=== PATIENT | female | born 1995 | race Caucasian/White ===

== ENCOUNTER 2023-09-05 14:30 | Emergency (ER) | payer OTHER ==
--- NOTE | 2023-09-05 15:38 | ED Physician Documentation ---
History of Present Illness - Stated complaint Stated Complaint: HBP,TIGHT CHEST - Chief complaint Chief Complaint: Cardiac - History obtained from History obtained from: Patient - Additonal information Additional information: The patient comes to the emergency department chief complaint of elevated blood pressure. She states she is on Adderall for ADHD and felt like she needed to increase her dose. Her doctor had given her permission to do this and so she did about 5 days ago. She states that since then, she noticed that her blood pressure was running higher than usual, around 130s over 90s. She states that today, she found that her blood pressure was in the 140s over about 100 and then the systolic continue to rise to the 160s. The patient decided to come here. She did take a rapid acting propranolol 10 mg tab, which she has at home, and uses when she has elevated blood pressure. The patient has a history of hypertension and at baseline, takes propranolol 60 mg and telmisartan. She is uncertain of the telmisartan dose. She has not had any recent dose changes on these. She denies any chest pain, shortness of breath, or strokelike symptoms. No other complaints at this time. PD PAST MEDICAL HISTORY - Past Medical History Past Medical History: Yes Cardiovascular: Hypertension Psych: Depression, Anxiety, ADD/ADHD - Past Surgical History Past Surgical History: No - Present Medications Home Medications: Ambulatory Orders Medication Instructions Recorded Confirmed Dextroamphetamine/Amphetamine 30 mg PO DAILY 09/05/23 09/05/23 [Dextroamp-Amphetamine 5 mg Tab] Eluryng 09/05/23 Guanfacine HCl [Intuniv] 3 mg PO DAILY 09/05/23 09/05/23 Potassium Chloride [K-Dur] 20 meq PO BIDWM #6 tablet 09/05/23 Propranolol ER [Inderal LA] 60 mg PO DAILY 09/05/23 09/05/23 Propranolol [Inderal] 10 mg PO DAILY PRN 09/05/23 09/05/23 Telmisartan/Hydrochlorothiazid 1 tab ORAL DAILY 09/05/23 09/05/23 [Micardis Hct 40-12.5 mg Tablet] - Allergies Allergies/Adverse Reactions: Allergies Allergy/AdvReac Type Severity Reaction Status Date / Time No Known Drug Allergies Allergy Verified 09/05/23 14:45 - Social History Does the pt smoke?: No Smoking Status: Never smoker Does the pt drink ETOH?: Yes Substance Use and Type: Marijuana - Immunizations Immunizations: TDAP >10years/unknown PD ED PE NORMAL - Vitals Vital signs reviewed: Yes - General General: Alert and oriented X 3, No acute distress, Well developed/nourished - HEENT HEENT: Atraumatic, PERRL, EOMI, Moist mucous membranes - Neck Neck: Supple, no meningeal sign - Cardiac Cardiac: RRR, No murmur - Respiratory Respiratory: No respiratory distress, Clear bilaterally - Abdomen Abdomen: Soft, Non tender, Non distended - Derm Derm: Normal color, Warm and dry, No rash - Extremities Extremities: No deformity, No edema - Neuro Neuro: Alert and oriented X 3, Other (Grossly intact.) - Psych Psych: Normal mood, Normal affect Results - Vitals Vitals: Vital Signs - 24 hr 09/05/23 17:00 Temperature 36.5 C Heart Rate 73 Respiratory 15 Rate Blood Pressure 138/99 H O2 Saturation 99 Oxygen O2 Source Room air - EKG (time done) 1456 EKG releavant findings:: EKG personally interpreted by author of this note. Relevant findings are: Rate: Rate (enter#) (72) Rhythm: NSR [place]: Normal Intervals: Normal [place] QRS: Normal Compare to prior EKG: Old EKG unavailable Computer interpretation: Agree with computer - Labs Labs: Laboratory Tests 09/05/23 09/05/23 15:46 15:46 WBC 17.1 H RBC 5.10 Hgb 15.3 Hct 44.5 MCV 87.3 MCH 30.0 MCHC 34.4 RDW 11.2 L Plt Count 438 MPV 9.5 Neut # (Auto) 11.2 H Lymph # (Auto) 4.8 H [place] # (Auto) 0.8 Eos # (Auto) 0.1 Baso # (Auto) 0.1 Absolute Nucleated RBC 0.00 Nucleated RBC % 0.0 Sodium 133 L Potassium 3.0 L Chloride 99 L Carbon Dioxide 26 Anion Gap 8.0 BUN 8 Creatinine 0.7 Estimated GFR (MDRD) 99 Glucose 96 Calcium 9.6 Total Bilirubin 0.4 AST 11 ALT 7 L Alkaline Phosphatase 70 Total Protein 8.2 Albumin 4.2 Globulin 4.0 Albumin/Globulin Ratio 1.1 Lipase 22 PD Medical Decision Making - ED course Complexity details: reviewed results, re-evaluated patient, considered differential, d/w patient ED course: The patient was well-appearing overall in the emergency department. She was mildly hypertensive with blood pressure 149/104 in triage. Her laboratory studies showed mild hypokalemia, for which she was prescribed replacements. The pt has rescue propranolol, and we have discussed using that if her pressure is above 130/90. If she is still needing this in 2 weeks, I have advised her that she will need to follow up with her PCP to evaluate her overall medication regimen. We have discussed the usual indications for return. Departure - Departure Disposition: Home, Self Care Clinical Impression: Medication side effect, Hypokalemia Hypertension Qualifiers: Hypertension type: unspecified Qualified Code(s): I10 - Essential (primary) hypertension Condition: Stable Instructions: ED Drug React Adverse Other, ED HTN Established, ED Potassium Deficiency Prescriptions: Potassium Chloride [K-Dur] 20 meq PO BIDWM #6 tablet Comments: Overall, your laboratory studies look fairly good. You have some mild deficiencies of both sodium and potassium. The sodium is minimal and will correct itself. Potassium would benefit from a few days of potassium replacements, and the prescription for these has been electronically transmitted to the [facility] pharmacy in [place], your pharmacy of choice on record. Please pick this up and start either tonight or tomorrow. As far as your blood pressure, as we discussed, you may take extra, as needed propranolol 10 mg doses if needed for blood pressure greater than 130/90. If this continues for more than the next couple of weeks, you should follow-up with your primary doctor to determine whether more permanent changes should be made to your medication regimen. Forms: PCP List Discharge Date/Time: 09/05/23 18:02
[2023-09-05 15:58] LABS: BASOPHILS # (AUTO) 0.1 10^3/uL (0.0-0.1); BASOPHILS % (AUTO) 0.4 %; EOSINOPHILS # (AUTO) 0.1 10^3/uL (0.0-0.7); EOSINOPHILS % (AUTO) 0.7 %; HCT - HEMATOCRIT 44.5 % (37.0-47.0); HGB - HEMOGLOBIN 15.3 g/dL (12.0-16.0); LYMPHOCYTES # (AUTO) 4.8 10^3/uL (1.5-3.5); LYMPHOCYTES % (AUTO) 28.3 %; MEAN CORPUSCULAR HGB CONC 34.4 g/dL (32.0-36.0); MEAN CORPUSCULAR VOLUME 87.3 fL (81.0-99.0); MEAN PLATELET VOLUME 9.5 fL (7.9-10.8); MONOCYTES # (AUTO) 0.8 10^3/uL (0.0-1.0); MONOCYTES % (AUTO) 4.6 %; NEUTROPHILS # (AUTO) 11.2 10^3/uL (1.5-6.6); NEUTROPHILS % (AUTO) 65.6 %; PLT - PLATELET COUNT 438 10^3/uL (130-450); RED CELL DISTRIBUTION WIDTH 11.2 % (12.0-15.0); WHITE BLOOD COUNT 17.1 x10^3/uL (4.8-10.8)
[2023-09-05 16:04] LABS: ALBUMIN 4.2 g/dL (3.2-5.5); ALBUMIN/GLOBULIN RATIO 1.1 (1.0-2.2); BILIRUBIN,TOTAL 0.4 mg/dL (0.2-1.0); CALCIUM 9.6 mg/dL (8.5-10.3); CREATININE 0.7 mg/dL (0.6-1.3); TOTAL PROTEIN 8.2 g/dL (6.4-8.9)
[2023-09-05 18:07] VITALS: BP 138/99; O2SAT 99
== END 2023-09-05 18:02 | disposition home or self-care (01) ==
LOC: ED 14:30
DX: I15.8 Other secondary hypertension (principal); T43.625A Adverse effect of amphetamines, initial encounter; E87.6 Hypokalemia
CPT/HCPCS: 36415; 80053; 83690; 85025; 93005; 99283

== ENCOUNTER 2023-12-05 07:55 | Outpatient (CLI) | payer OTHER | END 2023-12-05 07:56 | disposition home or self-care (01) | LOC: DI 07:55 | PROVIDERS: ATTEND Family Medicine | DX: R00.2 Palpitations (principal); R09.89 Other specified symptoms and signs involving the circulatory and respiratory systems; R06.00 Dyspnea, unspecified | CPT/HCPCS: 93307 ==